=== PATIENT | female | born 1985 | race Two or more races ===

== ENCOUNTER 2022-04-30 08:42 | Outpatient (CLI) | payer OTHER | END 2022-04-30 10:00 | disposition home or self-care (01) | LOC: PRENATAL 08:42 | PROVIDERS: ATTEND Obstetrics & Gynecology Maternal & Fetal Medicine | DX: O36.80X0 Pregnancy with inconclusive fetal viability, not applicable or unspecified (principal); O09.529 Supervision of elderly multigravida, unspecified trimester; Z3A.14 14 weeks gestation of pregnancy ==

== ENCOUNTER 2022-05-13 03:59 | Emergency (ER) | payer OTHER ==
[~2022-05-13] VITALS: Ht 154.9 cm; Wt 78.0 kg
[2022-05-13] MEDS ORDERED: PRENATAL 19 TA1 EAC2 (04:12)
[2022-05-13] MEDS ORDERED: ECOTRIN81 MG (04:12)
== END 2022-05-13 09:18 | disposition home or self-care (01) ==
LOC: ER 03:59
DX: O26.892 Other specified pregnancy related conditions, second trimester (principal); R10.2 Pelvic and perineal pain; Z3A.16 16 weeks gestation of pregnancy

== ENCOUNTER 2022-06-11 12:34 | Outpatient (CLI) | payer OTHER ==
[~2022-06-11 12:34] MED LIST: ECOTRIN81 MG; PRENATAL 19 TA1 EAC2
== END 2022-06-11 17:54 | disposition home or self-care (01) ==
LOC: PRENATAL 12:34
PROVIDERS: ATTEND Obstetrics & Gynecology Maternal & Fetal Medicine
DX: O35.9XX0 Maternal care for (suspected) fetal abnormality and damage, unspecified, not applicable or unspecified (principal); O35.3XX0 Maternal care for (suspected) damage to fetus from viral disease in mother, not applicable or unspecified; O09.529 Supervision of elderly multigravida, unspecified trimester

== ENCOUNTER 2022-09-07 08:33 | Outpatient (CLI) | payer OTHER | END 2022-09-07 09:58 | disposition home or self-care (01) | LOC: PRENATAL 08:33 | PROVIDERS: ATTEND Obstetrics & Gynecology Maternal & Fetal Medicine | DX: O26.849 Uterine size-date discrepancy, unspecified trimester (principal); O35.9XX0 Maternal care for (suspected) fetal abnormality and damage, unspecified, not applicable or unspecified; O36.8199 Decreased fetal movements, unspecified trimester, other fetus; O09.529 Supervision of elderly multigravida, unspecified trimester; Z3A.32 32 weeks gestation of pregnancy ==

== ENCOUNTER 2022-10-17 16:44 | Outpatient (CLI) | payer OTHER ==
[2022-10-18] MEDS ORDERED: PERCOCET 5-3251 EACH PO (18:12)
== END 2022-10-18 18:20 | disposition home or self-care (01) ==
LOC: OBS/DEL 16:44
PROVIDERS: Specialist; ATTEND Student in an Organized Health Care Education/Training Program
DX: O26.893 Other specified pregnancy related conditions, third trimester (principal); Z3A.38 38 weeks gestation of pregnancy; N23 Unspecified renal colic

== ENCOUNTER 2022-10-19 10:54 | Inpatient (IN) | payer OTHER ==
[~2022-10-19] VITALS: Ht 154.9 cm; Wt 2.7 kg
[~2022-10-19 10:54] MED LIST changes: +PERCOCET 5-3251 EACH PO
[2022-10-27] MEDS ORDERED: FAMOTIDINE20 MG (08:18)
== END 2022-10-30 14:49 | disposition home or self-care (01) | DRG 788 ==
LOC: LDR 10-26 07:54 → O/R 10-27 15:13 → OB/GYN 10-27 17:59 → LDR 10-29 13:00 → OB/GYN 10-30 14:49
PROVIDERS: ADMIT Student in an Organized Health Care Education/Training Program; ATTEND Student in an Organized Health Care Education/Training Program
PROC: 4A1HXCZ Monitoring of Products of Conception, Cardiac Rate, External Approach (ICD-10-PCS; 2022-10-26)
PROC: 3E0P7VZ Introduction of Hormone into Female Reproductive, Via Natural or Artificial Opening (ICD-10-PCS; 2022-10-26)
PROC: 3E033VJ Introduction of Other Hormone into Peripheral Vein, Percutaneous Approach (ICD-10-PCS; 2022-10-27)
PROC: 10D00Z1 Extraction of Products of Conception, Low, Open Approach (ICD-10-PCS; principal; 2022-10-27 14:00)
PROC: BT43ZZZ Ultrasonography of Bilateral Kidneys (ICD-10-PCS; 2022-10-28)
DX: O82 Encounter for cesarean delivery without indication (principal); Z3A.39 39 weeks gestation of pregnancy; Z37.0 Single live birth; Z20.822 Contact with and (suspected) exposure to COVID-19